=== PATIENT | male | born 1955 | race Caucasian/White ===

== ENCOUNTER 2018-10-19 11:45 | Emergency (ER) | payer MEDICARE ==
[2018-10-19] MEDS ORDERED: HYDROcodone/Acetaminophen 5/325 mg Tablet ONE (13:27)
--- NOTE | 2018-10-19 14:13 | RAD ---
3 VIEWS RIGHT ANKLE: Date: 10/19/18 INDICATION: History of fall with right ankle pain. COMPARISON: None. FINDINGS: There is moderate tibiotalar and mild subtalar osteoarthrosis. No acute fracture or subluxation is ev ident. Enthesopathic change is seen off the calcaneus. There is soft tissue swelling involving the ri ght foreleg, ankle, and hindfoot. There is subchondral cyst-like abnormality involving the medial kamar ar dome. 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 No acute fracture or subluxation. Diffuse edema of th e right lower quadrant. POS: [facility]
== END 2018-10-19 13:43 | disposition home or self-care (01) ==
LOC: ERS 11:45
DX: S93.401A Sprain of unspecified ligament of right ankle, initial encounter (principal); I10 Essential (primary) hypertension; Z86.73 Personal history of transient ischemic attack (TIA), and cerebral infarction without residual deficits; Z87.891 Personal history of nicotine dependence; Z79.899 Other long term (current) drug therapy; Z79.82 Long term (current) use of aspirin; X50.9XXA Other and unspecified overexertion or strenuous movements or postures, initial encounter

== ENCOUNTER 2020-02-06 16:50 | Inpatient (IN) | payer MEDICARE ==
[~2020-02-06 16:50] MED LIST: Dexamethasone 20 MG/5 ML VIAL ONE; EPHEDRINE 25 MG/5 ML SYRINGE ONE; Lidocaine 1% PF 5 ML VIAL ONE; Ondansetron PF 4 MG/2 ML Vial ONE; PHENYLEPHRINE-NS 100 MCG/ML 10 ML SYRINGE ONE; PROPOFOL 200 MG/20 ML VIAL ONE; Rocuronium Bromide 10 MG/ML (10ML VIAL) ONE; Succinylcholine Chloride 20 MG/ML 10 ml SYRINGE FS ONE
--- NOTE | 2020-02-06 17:20 | CT ---
CT Brain WO Con: 02/06/2020 12:00 AM CLINICAL HISTORY: Level 1 stroke alert with right-sided facial droop, weakness and slurred speech wit h history of hypertension. IMAGING TECHNIQUE: Multiple CT images were obtained of the brain without IV contrast. COMPARISON: None. FINDINGS: BRAIN: Evidence of acute infarct: None. Evidence of chronic ischemic change:There is a mild to moderate chronic small vessel white matter isc hemic change. Evidence of intracranial hemorrhage: There is a acute on chronic subdural hematoma overlying the lef t frontal lobe, left parietal lobe and left occipital lobe measuring up to 2.1 cm, overlying the left parietal convexity. There is a chronic right subdural hematoma overlying the right parietal conv exity measuring 1.2 cm. Evidence of midline shift: There is [id number] midline shift of 3 mm. Ventricles: Normal. No hydrocephalus. SKULL: Intact. VISUALIZED PARANASAL SINUSES: Clear. MASTOID AIR CELLS: Clear. EXTRACRANIAL SOFT TISSUES: Normal. IMPRESSION: Acute on chronic left-sided subdural hematoma overlying the left frontal lobe, left parietal lobe and left occipital lobe with 3 mm of [id number] midline shift. Chronic appearing subdural hematoma overlying the right parietal region. Bniy-jv-xdzkhtsm chronic small vessel white matter ischemic change. Findings called to Dr. Rider at 5:15 PM on February 06, 2020.
[2020-02-06 17:42] LABS: #Eosinphils 0.1 thou/uL (0.0-0.7); #Lymphocytes 0.9 thou/uL (1.20-3.40); #Monocytes 0.7 thou/uL (0.11-0.59); #Neutrophils 7.1 thou/uL (1.40-6.50); %Basophils 0.3 % (0.0-1.0); %Eosinophils 0.8 % (0.0-10.0); %Lymphocytes 10.3 % (21.0-51.0); %Monocytes 8.2 % (0.0-10.0); %Neutrophils 80.4 % (42.0-75.0); Hemoglobin 16.6 g/dL (14.0-18.0); Mean Corpuscular HGB CONC 33.4 g/dL (32.0-36.0); Mean Corpuscular Hemoglobin 30.6 pg (27.0-31.0); Mean Corpuscular Volume 91.5 fL (78.0-98.0); Mean Platelet Volume 8.6 fL (7.4-10.4); Platelet Count 176 thou/uL (130-400); RBC Distribution Width 11.6 % (11.5-14.5); Red Blood Cell (RBC) Count 5.42 mill/uL (4.70-6.10); White Blood Cell (WBC) Count 8.8 thou/uL (4.8-10.8)
[2020-02-06 17:50] LABS: INR-International Normal Ratio 0.9; Prothrombin Time 12.5 sec (12.0-14.7)
[2020-02-06 17:51] LABS: PTT 32.6 sec (22.9-36.1)
[2020-02-06 18:02] LABS: ALT (SGPT) 12 U/L (8-55); AST (SGOT) 18 U/L (5-34); Albumin 4.1 g/dL (3.4-4.8); Alkaline Phosphatase 69 U/L (40-110); Anion Gap 18 mmol/L (10-20); BUN (Urea Nitrogen) 23 mg/dL (8.4-25.7); Calc. Creatinine Clearance 0 mL/min (70-130); Carbon Dioxide 23 mmol/L (23-31); Chloride 92 mmol/L (98-107); Estimated GFR-MDRD 35; Globulin 4.5 g/dL (2.4-3.5); Glucose 120 mg/dL (80-115); Potassium 3.9 mmol/L (3.5-5.1); Protein, Total 8.6 g/dL (5.8-8.1); Sodium 129 mmol/L (136-145)
[2020-02-06] MEDS ORDERED: Bisacodyl 10 MG SUPP PR PRN (18:19)
[2020-02-06] MEDS ORDERED: Milk Of Magnesia 30 ML UDCUP PO PRN (18:19)
[2020-02-06] MEDS ORDERED: Docusate 100 MG CAP PO PRN (18:19)
[2020-02-06] MEDS ORDERED: Ondansetron PF 4 MG/2 ML Vial IVP PRN (18:19)
[2020-02-06] MEDS ORDERED: Acetaminophen 325 MG TAB PO PRN (18:19)
[2020-02-06] MEDS ORDERED: Lidocaine 0.5%/Epinephrine 1:200,000 50 ml Vial ONE (18:25)
[2020-02-06] MEDS ORDERED: Bacitracin Zinc Ointment 30 gm TUBE ONE (18:25)
[2020-02-06] MEDS ORDERED: Thrombin 5000 UNITS/5 ML VIAL ONE (18:25)
[2020-02-06] MEDS ORDERED: Sodium Chloride 0.9% 1,000 ML IV SCH (18:30)
[2020-02-06] MEDS ORDERED: CEFAZOLIN 2 GM in Premix Bag 1 BAG IVPB SCH (18:30)
[2020-02-06] MEDS ORDERED: Fentanyl 100 MCG/2 ML VIAL SLOW IVP PRN ×2 (18:32)
[2020-02-06] MEDS ORDERED: Fentanyl 100 MCG/2 ML VIAL ONE (18:46)
[2020-02-06] MEDS ORDERED: Sodium Chloride 0.9% 20 ML ONE (20:07)
[2020-02-06] MEDS ORDERED: SUGAMMADEX SODIUM 200 MG/2 ML VIAL ONE (20:41)
--- NOTE | 2020-02-06 21:01 | PRG ---
DATE OF SERVICE: 02/06/2020 I personally examined the patient, reviewed imaging and documentation, and agreed with the notes of Frandy Bingham PA-C. Briefly, Marlon Corbett is a 64-year-old gentleman, who came to the emergency department acutely for new onset neurological deficit including dysphasia and right body weakness. CT examination in the emergency department revealed a large subdural hematoma over the posterior frontal and parietal lobes on the left side measuring about 2.1 cm in maximal thickness with local mass effect and the modest amount of midline shift. Mr. Corbett was offered surgical intervention, and consent was obtained. We have taken him to the operating room for janeen hole evacuation of left-sided subdural hematoma. Job ID: [id number]
[2020-02-06] MEDS ORDERED: Ondansetron HCl/PF 4 MG/2 ML Vial IVP PRN (21:12)
[2020-02-06] MEDS ORDERED: Meperidine HCl/PF 25 MG/ML VIAL SLOW IVP PRN (21:12)
[2020-02-06] MEDS ORDERED: Promethazine HCl 25 MG/ML VIAL SLOW IVP PRN (21:12)
[2020-02-06] MEDS ORDERED: Promethazine HCl 25 MG/ML VIAL IM PRN (21:12)
[2020-02-06] MEDS ORDERED: Morphine Sulfate 2 MG/ML SYRINGE SLOW IVP PRN (21:12)
--- NOTE | 2020-02-06 21:24 | OP ---
DATE OF PROCEDURE: 02/06/2020 HEATER ROOM HELPER: Frandy Bingham PA-C PREOPERATIVE INDICATION: Prevent neurological deterioration. PREOPERATIVE DIAGNOSIS: Left subdural hematoma with mass effect and neurological deficit. POSTOPERATIVE DIAGNOSIS: Left subdural hematoma with mass effect and neurological deficit. PROCEDURES PERFORMED: Janeen hole evacuation of left frontal parietal subdural hematoma, placement of subdural drain. PREOPERATIVE MEDICATIONS: Ancef 2 g IV. DRAIN NUMBER: One. DRAIN TYPE: 10-H[place]er subdural drain. DESCRIPTION OF PROCEDURE: The patient was brought to the operating room. General endotracheal anesthesia was induced. The patient was carefully positioned in the right lateral decubitus position, and the head was supported by folded blankets and a gel-filled donut-shaped headrest. Hair was removed from the left side of the scalp with electric clippers. We planned an incision superior to the pinna and a separate incision more posteriorly in the parietal area, both in vertical direction to allow us greater flexibility for future craniotomies when he needed. Under the two planned incisions, we infused local anesthetic. The left side of the scalp was sterilely prepped and draped. We opened our planned incisions with a 10 blade knife and we controlled bleeding with bipolar and monopolar cautery. We dissected sharply down to the periosteal layer and placed Weitlaner retractors in both our incisions, spreading the wide enough to bring the high-speed drill into the field. Using a high-speed drill and a perforating bit, we placed janeen holes in the parietal bone one anteriorly and one posteriorly. We waxed the edges of the janeen holes and coagulated the dura with bipolar cautery. We incised the dura in a cruciate fashion and coagulated back the leaflets. There was one main membrane the deep collection from the superficial collection and this membrane in the subdural space was coagulated until we could see brain quite easily and glistening marco a through both the posterior and anterior janeen holes. We irrigated copiously with bacitracin irrigation. We irrigated until the irrigant ran clear. We brought a red rubber catheter into the field. We cut extra side holes in the catheter and placed in the subdural space, tunneled the drain inferiorly through a separate stab incision. We filled the subdural space with bacitracin irrigation. We placed Gelfoam over the janeen holes and closed both incisions in anatomical layers. We attached the distal end of the red rubber catheter to the Faria drainage system to collect subdural fluid. We placed a pursestring suture at the exit point of the red rubber catheter and tied this around the catheter to secure in its place. Sterile dressings were applied. This was a clean case, no contamination. Job ID: [id number]
[2020-02-06] MEDS ORDERED: Labetalol HCl 100 MG/20 ML VIAL ONE (21:32)
[2020-02-06] MEDS ORDERED: hydrALAZINE 20 MG/ML VIAL ONE (21:46)
[2020-02-06] MEDS: levETIRAcetam 500 MG TAB PO SCH (22:42)
[2020-02-06] MEDS: Sodium Chloride 0.9% 1,000 ML IV SCH (22:42)
--- NOTE | 2020-02-06 23:08 | CON ---
DATE OF CONSULTATION: HISTORY OF PRESENT ILLNESS: Mr. Corbett is a 64-year-old male brought to [facility] Emergency Room by [facility] due to stroke-like symptoms. His symptoms consisted of right-sided weakness and upper and lower extremities weakness. He had a right-sided facial droop. He is moving all extremities and he has good strength. He is having some trouble forming words and he is a little hard to comprehend due to his slurred speech. I spoke to his daughter at bedside and she denies that her father fell. She denied any other traumas. As time went on, his new onset neurological deficits including his dysphagia and right body weakness started to improve. His speech actually started to improve as well and he was slurring his words less. Mr. Corbett had spontaneous eye opening, he was confused, but responded to verbal commands. Neurosurgery was consulted due to a head CT, which showed a large subdural hematoma over the posterior frontal and parietal lobes on the left side measuring about 2.1 cm with mass effect and midline shift. PAST MEDICAL HISTORY: Hyperlipidemia, hypertension, and ischemic cerebral vascular accident. SOCIAL HISTORY: The patient drinks alcohol every day. He denies illicit drug use and he is a former cigarette smoker, quitting more than 10 years ago. ALLERGIES: NO KNOWN ALLERGIES. CURRENT MEDICATIONS: 1. Amlodipine. 2. Losartan-hydrochlorothiazide. 3. Pravastatin. REVIEW OF SYSTEMS: CONSTITUTIONAL: Denies fever or chills. ENT: Denies change in vision or hearing. CARDIAC: Denies chest pain, shortness of breath, or diaphoresis. PULMONARY: Denies shortness of breath, cough, or hemoptysis. GI: Denies fecal incontinence, abdominal pain, nausea, vomiting, diarrhea, or change in stool formation and consistency. : Denies urinary incontinence, trouble with urination, frequency of urination , or bloody urine. SKIN: Denies skin rash, bruising, bleeding, or skin masses. MUSCULOSKELETAL: As per history of present illness. NEUROLOGIC: As per history of present illness. PSYCHOLOGIC: Denies anxiety, depression, or behavior changes. PHYSICAL EXAMINATION: VITAL SIGNS: Blood pressure is 150/90, pulse is 88, and respiratory rate is 18. HEENT: Pupils are equal. NECK: Normal, soft, and supple. No masses are noted. ROM intact and nonpainful. NEUROLOGIC: Awake. Cranial nerves grossly intact. Upper extremity and lower extremity, acute new onset of neurological deficits are including dysphagia and right body weakness. IMAGING: Brain CT, large subdural hematoma over the posterior frontal and parietal lobes on the left side measuring about 2.1 cm in maximum thickness with a local mass effect and modest amount of midline shift. PLAN: Left janeen hole evacuation of the subdural hematoma. Informed consent was signed. We discussed indications risks, benefits, alternatives, and expected results from surgery. The risks discussed included, but were not limited to, infection, bleeding, CSF leak, brain damage, significant loss of neurological function, seizure, stroke, dependency for normal care, cardiopulmonary complications of anesthesia, or . Long-term complications discussed included, but were not limited to, recurrence and future surgery. He understands the risks and is willing to proceed. Mr. Corbett's daughter was present during the informed consent signature. Job ID: [id number] MTDD
[2020-02-06 23:13] VITALS: BMI 39.2
[2020-02-07] MEDS: CEFAZOLIN 2 GM in Premix Bag 1 BAG IVPB SCH ×3 (03:52→20:07)
[2020-02-07 04:17] LABS: Anion Gap 12 mmol/L (10-20); BUN (Urea Nitrogen) 20 mg/dL (8.4-25.7); Calc. Creatinine Clearance 70 mL/min (70-130); Calcium 8.6 mg/dL (7.8-10.44); Carbon Dioxide 28 mmol/L (23-31); Chloride 95 mmol/L (98-107); Estimated GFR-MDRD 36; Glucose 203 mg/dL (80-115); Sodium 131 mmol/L (136-145)
--- NOTE | 2020-02-07 07:07 | PRG ---
DATE OF SERVICE: 02/07/2020 Mr. Corbett is one day out from janeen hole evacuation of subdural hematoma. He tolerated his drain well. He has been in the left lateral decubitus position overnight since surgery. CT scan is pending this morning. Among Mr. Corbett's electronically recorded vital signs, I do not see any fevers recorded. Blood pressures have been in the 90s to 120s. Mr. Corbett's speech is much clearer this morning. He is following commands well. He is conversant. I can understand him. He is moving both sides well. The plan for Mr. Corbett is to evaluate a CT scan. If there is a very good resolution of subdural hematoma, we will remove the drain and let him sit up slowly until lunchtime. If there is some residual fluid that could come out of the drain over the next 24 hours, we will leave the drain in and mobilize him and repeat his scan tomorrow. Job ID: [id number]
--- NOTE | 2020-02-07 07:34 | CT ---
CT BRAIN WITHOUT CONTRAST: COMPARISON: 02/06/2020. HISTORY: Evacuation of subdural hematoma. TECHNIQUE: Multiple contiguous axial images were obtained in a CT of the brain without contrast. FINDINGS: There has been interval postsurgical change with a drain placed in the left parietal subdural space. Subdural hematoma has decreased in size and now measures 10 mm in greatest thickness. There are remedios bles of pneumocephalus from recent surgery. No midline shift or downward herniation is seen. No int raventricular hemorrhage or hydrocephalus is seen. The visualized paranasal sinuses and mastoid air cells are well aerated. IMPRESSION: Decreased size subdural hemorrhage status post drain placement. POS: [facility]
[2020-02-07] MEDS: levETIRAcetam 500 MG TAB PO SCH ×2 (08:28→20:07)
[2020-02-07] MEDS: Pantoprazole 40 MG VIAL IVP SCH (08:31)
[2020-02-07] MEDS: Sodium Chloride 0.9% 1,000 ML IV SCH ×2 (08:32→20:08)
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
[2020-02-08] MEDS: CEFAZOLIN 2 GM in Premix Bag 1 BAG IVPB SCH ×3 (03:14→20:08)
--- NOTE | 2020-02-08 07:29 | CT ---
PRELIMINARY REPORT/[facility]/EMERGENCY AFTER HOURS PROCEDURE: EXAM: CT Head Without Intravenous Contrast. CLINICAL HISTORY: Follow up on [facility] TECHNIQUE: Axial computed tomography images of the head/brain without intravenous contrast. COMPARISON: CT\NE\SR - CT BRAIN WO CON - 02/07/2020 06:28 AM CDT FINDINGS: BRAIN: There are 2 janeen holes in the left parietal bone with a percutaneous drain in place within the left p arietal subdural hematoma. There are foci of gas within the hematoma. The hematoma extends inferiorly and overlies the left posterior cerebral with heterogeneous density and is unchanged in appearance c ompared to the prior CT. No midline shift or downward herniation is present. VENTRICLES: The ventricles are unchanged in appearance compared to prior. No intraventricular hemorrhage ORBITS: The orbits are unremarkable. SINUSES AND MASTOIDS: The paranasal sinuses and mastoid air cells are clear. SOFT TISSUES: Soft tissue thickening overlying the janeen holes. IMPRESSION: Let subdural hematoma status post surgery with drain in place. Appearance is unchanged compared to p rior CT dated 02/07/2020. ELECTRONICALLY SIGNED BY: Bonny Del Rosario MD Feb 08, 2020 4:26:28 AM CDT This report is intended for review by the ordering physician only, in accordance of law. If you recei ve this report in error, please call [facility] at [phone]. FINAL REPORT EMERGENCY AFTER HOURS CT BRAIN WITHOUT CONTRAST: Date: 02/08/2020 COMPARISON: 02/07/2020. FINDINGS/IMPRESSION: I agree with the findings and impression given in the preliminary report per [facility] physici an. Postsurgical changes from evacuation of subdural hematoma with continued decrease in size of the subd ural hematoma. POS: [facility]
--- NOTE | 2020-02-08 07:57 | PRG ---
DATE OF SERVICE: 02/08/2020 Mr. Corbett is 2 days out from janeen hole evacuation of subdural hematoma. We left his drain in another day. A CT scan has been done this morning. Mr. Corbett is up and watching TV this morning. He is sitting in a chair. He converses. At times, he stops to repeat the same syllable and some of the words in neologisms, but his conversation is much clearer than it was yesterday and yesterday was the first time we had conversation since surgery. All of this points to improvement in his language function. I do not find any lateralizing motor or sensory deficits now. This morning, CT scan shows continued resolution of his subdural hematoma. His sodium level this morning is pending. We will remove the drain today and move him from the ICU to a regular room. From his regular room, he could be discharged as soon as tomorrow. I cautioned him to stop his cigarette smoking and alcohol use. Job ID: [id number]
[2020-02-08 08:39] LABS: Anion Gap 10 mmol/L (10-20); BUN (Urea Nitrogen) 24 mg/dL (8.4-25.7); Calc. Creatinine Clearance 70 mL/min (70-130); Calcium 7.8 mg/dL (7.8-10.44); Carbon Dioxide 29 mmol/L (23-31); Chloride 101 mmol/L (98-107); Estimated GFR-MDRD 36; Glucose 99 mg/dL (80-115); Potassium 3.5 mmol/L (3.5-5.1); Sodium 136 mmol/L (136-145)
[2020-02-08] MEDS: Sodium Chloride 0.9% 1,000 ML IV SCH (10:32)
[2020-02-08] MEDS: levETIRAcetam 500 MG TAB PO SCH ×2 (10:36→20:08)
[2020-02-08] MEDS: Pantoprazole 40 MG VIAL IVP SCH (10:36)
[2020-02-08] MEDS: hydrALAZINE 20 MG/ML VIAL SLOW IVP PRN (18:09)
[2020-02-08] MEDS: Labetalol HCl 100 MG/20 ML VIAL SLOW IVP PRN (20:08)
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
[2020-02-09] MEDS: Labetalol HCl 100 MG/20 ML VIAL SLOW IVP PRN ×2 (01:37→16:37)
[2020-02-09] MEDS: hydrALAZINE 20 MG/ML VIAL SLOW IVP PRN (08:29)
[2020-02-09] MEDS: levETIRAcetam 500 MG TAB PO SCH ×2 (08:31→20:11)
--- NOTE | 2020-02-09 08:31 | PRG ---
DATE OF SERVICE: 02/09/2020 I saw Mr. Corbett on rounds this morning. He is resting comfortably in his hospital room, having been transferred out of the ICU yesterday. His drain has been removed. Mr. Corbett has no complaints and wants to go home. I do not see any recorded fevers. His vital signs have been stable. His neurological function is quite good compared to his admission. If he is safe for activities of daily living, he can go home. He needs to shower daily. We should start that in the hospital before discharge. Job ID: [id number]
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
[2020-02-09 15:14] VITALS: TEMP 98.3
[2020-02-09 18:14] VITALS: BP 142/70
[2020-02-09] MEDS ORDERED: Simvastatin 5 MG TAB PO SCH (21:00)
[2020-02-10] MEDS ORDERED: Aspirin 81 mg Enteric Coated Tablet PO SCH (09:00)
[2020-02-10] MEDS ORDERED: Losartan/Hydrochlorothiazide 100 mg/25 mg Tablet PO SCH (09:00)
[2020-02-10] MEDS ORDERED: Amlodipine 5 MG TAB PO SCH (09:00)
--- NOTE | 2020-02-10 12:58 | DIS ---
DATE OF ADMISSION: 02/06/2020 DATE OF DISCHARGE: 02/09/2020 HOSPITAL COURSE: Mr. Corbett is a 64-year-old male who is [facility] A [facility] scan evaluated for a subdural hematoma, when he was brought into the OR for a janeen hole evaluation of his subdural hematoma. Following the surgery he was transitioned to the ICU. His pain was well controlled with p.o. medications. He tolerated a regular diet and was voiding appropriately. His drain output trended downward and was removed postop day 2. He was then transitioned to the stroke unit. He is otherwise doing well and ambulating easily in the hallways and feels like he is ready to go home today. PHYSICAL EXAMINATION: He is awake and alert, in no acute distress. He has free active range of motion of all his extremities. No focal motor weakness. No reflex asymmetry. His incision is clean, dry, and intact. PLAN: We will plan to discharge Mr. Corbett home. I have discussed home care precautions with his daughter. CONDITIONS ON DISCHARGE: The patient had no emergencies. Condition was stable for discharge. MEDICATIONS: Ongoing medications were reviewed. FOLLOWUP: Followup arrangements were made by our in service coordinator in the clinic and call to the patient. ACTIVITIES: Restrictions were reviewed in person. Wound care showers are acceptable. The patient should pat the incision dry, but not submerge it under the surface of the body water for 2 months. Job ID: [id number]
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
== END 2020-02-09 20:15 | disposition home or self-care (01) | DRG 25 ==
LOC: ERS 16:50 → SDC 19:19 → CCU 22:11 → 2SE 02-08 21:31
PROVIDERS: ADMIT Neurological Surgery; ATTEND Neurological Surgery
PROC: 00C30ZZ Extirpation of Matter from Intracranial Epidural Space, Open Approach (ICD-10-PCS; principal; 2020-02-06)
PROC: 009430Z Drainage of Intracranial Subdural Space with Drainage Device, Percutaneous Approach (ICD-10-PCS; 2020-02-06)
DX: I62.00 Nontraumatic subdural hemorrhage, unspecified (principal); G93.6 Cerebral edema; E22.2 Syndrome of inappropriate secretion of antidiuretic hormone; R47.02 Dysphasia; N18.9 Chronic kidney disease, unspecified; I12.9 Hypertensive chronic kidney disease with stage 1 through stage 4 chronic kidney disease, or unspecified chronic kidney disease; G47.33 Obstructive sleep apnea (adult) (pediatric); D75.1 Secondary polycythemia; E66.9 Obesity, unspecified; Z68.39 Body mass index [BMI] 39.0-39.9, adult; Z87.891 Personal history of nicotine dependence
CPT/HCPCS: 36415; 36416; 70450; 80048; 80053; 85025; 85610; 85730; 86850; 86900; 86901; 93005; C9113; J0360; J0690; J1100; J2001; J2405; J2704; J3010; J3490